=== PATIENT | male | born 1945 | race Two or more races ===

== ENCOUNTER 2019-05-04 13:53 | Day surgery (SDC) | payer MEDICARE, BC ==
[~2019-05-04] VITALS: Ht 170.2 cm; Wt 85.8 kg
[~2019-05-04 13:53] MED LIST: ASPI-1265 PO; CALC600T2 PO; ENAL20TA75 PO; ERGO500014 PO; FOLI0.8T PO; GABA600T PO; GLIM1TAB PO; LANS30CA56 PO; LEVO50TA66 PO; METF1000 PO; MULT-1085 PO; NAPR220C15 PO; OMEG300C3 PO; SAXA5TAB PO; SIMV-42 PO
[2019-05-04] MEDS ORDERED: cefazolin/dext.iso 2gm/50ml 50 ML IV ONE (14:30)
[2019-05-04] MEDS ORDERED: normal saline 1000ml 1,000 ML IV SCH (14:30)
[2019-05-04] MEDS ORDERED: OMEG1CAP35 PO (14:36)
[2019-05-04] MEDS ORDERED: CHOL50004 PO (14:36)
[2019-05-04] MEDS ORDERED: EZET10TA21 PO (14:43)
[2019-05-04] MEDS ORDERED: ASCO500C15 PO (14:43)
[2019-05-04] MEDS ORDERED: FLUT15.815 (14:43)
[2019-05-04 14:50] VITALS: BP 131/72
[2019-05-04] MEDS ORDERED: pneumococcal 23-VAL P-sac vacc 25 mcg/0.5ml vial IMVAC ONE (16:15)
[2019-05-04] MEDS ORDERED: FLU VACC QS2019-20 36MOS UP/PF 60 MCG/0.5 ML SYRINGE IMVAC ONE (16:15)
[2019-05-04] MEDS ORDERED: midazolam 2 mg/2 ml injection ONE (16:30)
[2019-05-04] MEDS ORDERED: LIDOcaine 1% W/epiNEPHrine 1:100,000 20ml vial ONE (16:30)
[2019-05-04] MEDS ORDERED: ceFAZolin 1000mg inj ONE (16:30)
[2019-05-04] MEDS ORDERED: fentaNYL/PF 50MCG/1 ML 2ML syringe ONE (16:30)
[2019-05-04] MEDS ORDERED: ceFAZolin 1GM/D5W- ADD-VANTAGE 50 ML IV ONE (16:30)
[2019-05-04] MEDS ORDERED: clindamycin 600mg/D5W 50ml 50 ML IV ONE (16:49)
[2019-05-04] MEDS ORDERED: clindamycin phosphate 150mg/ml inj. ONE (16:50)
[2019-05-04 18:04] VITALS: BP 141/75
[2019-05-04 18:15] VITALS: BP 129/74
[2019-05-04] MEDS ORDERED: sod chloride 0.9% 10ml flush syringe IV SCH (18:15)
[2019-05-04] MEDS ORDERED: LORazepam 1 MG tablet PO PRN (18:15)
[2019-05-04] MEDS ORDERED: HYDROcodone/acetaminophen 10/325mg tab PO PRN (18:15)
[2019-05-04] MEDS ORDERED: HYDROcodone/acetaminophen 5mg/325mg tablet PO PRN (18:15)
[2019-05-04 18:30] VITALS: BP 127/82
[2019-05-04 18:45] VITALS: BP 129/70
[2019-05-04 19:00] VITALS: BP 141/75
[2019-05-05] MEDS ORDERED: ceFAZolin 1GM/D5W- ADD-VANTAGE 50 ML IV SCH
== END 2019-05-04 19:40 | disposition home or self-care (01) ==
LOC: SSTAY O 13:53
PROVIDERS: ATTEND Internal Medicine Interventional Cardiology
DX: T82.120A Displacement of cardiac electrode, initial encounter (principal); I49.5 Sick sinus syndrome; I10 Essential (primary) hypertension; G47.30 Sleep apnea, unspecified; Z23 Encounter for immunization; Z79.899 Other long term (current) drug therapy; Y83.8 Other surgical procedures as the cause of abnormal reaction of the patient, or of later complication, without mention of misadventure at the time of the procedure; Y92.89 Other specified places as the place of occurrence of the external cause
CPT/HCPCS: 33216; 33235; 82948; 99152; 99153; C1898; G0008; J0690; J2250; J3010; J3490; J7030; Q2037; 93005; A4565; A4620; A6449